=== PATIENT | male | born 1960 | race Caucasian/White ===

== ENCOUNTER 2022-08-01 12:18 | Emergency (ER) | payer OTHER ==
[~2022-08-01] VITALS: Ht 182.9 cm; Wt 61.2 kg
[2022-08-01 12:20] VITALS: BP_SYST 143
[2022-08-01 23:34] LABS: BASOPHILS # (AUTO) 0.1 K/uL (0.0-0.2); EOSINOPHILS # (AUTO) 0.1 K/uL (0.0-0.4); EOSINOPHILS % (AUTO) 0.8 % (0.0-4.0); HEMATOCRIT 33.3 % (36-54); HEMOGLOBIN 10.8 g/dL (14.0-18.0); LYMPHOCYTES # (AUTO) 1.6 K/uL (1.0-5.5); LYMPHOCYTES % (AUTO) 24.6 % (20.5-51.5); MEAN CORPUSCULAR HEMOGLOBIN 25 pg (27-31); MEAN CORPUSCULAR HGB CONC 33 % (32-36); MEAN CORPUSCULAR VOLUME 78 fL (79.0-98.0); MONOCYTES # (AUTO) 0.6 K/uL (0.0-1.0); MONOCYTES % (AUTO) 9.8 % (1.7-9.3); NEUTROPHILS # (AUTO) 4.2 K/uL (1.8-7.7); NEUTROPHILS % (AUTO) 63.8 % (40.0-70.0); PLATELET COUNT (AUTO) 362 K/uL (130-430); RED BLOOD CELL COUNT(AUTO) 4.29 MIL/uL (4.2-6.2); WHITE BLOOD COUNT (AUTO) 6.5 K/uL (4.8-10.8)
[2022-08-02 00:17] LABS: CALCIUM 9.6 mg/dL (8.4-11.0); CREATININE 1.29 mg/dL (0.55-1.30); TOTAL BILIRUBIN 0.2 mg/dL (0.0-1.0)
[2022-08-02 00:18] LABS: ALBUMIN 3.9 g/dL (3.4-4.8)
[2022-08-02] MEDS ORDERED: HYDR-3917 PO ×2 (02:42→03:26)
[2022-08-02] MEDS ORDERED: IBUP-1969 PO ×2 (02:42→03:26)
[2022-08-02] MEDS ORDERED: LIDO1ADH71 TD ×2 (02:42→03:26)
[2022-08-02] MEDS ORDERED: ONDA-8 TL ×2 (02:42→03:26)
[2022-08-02] MEDS ORDERED: MORPHINE 4 MG INJ. 4 MG/ML VIAL IVP ONE (03:00)
[2022-08-02] MEDS ORDERED: MORPHINE 4 MG INJ. 4 MG/ML VIAL ONE (03:01)
[2022-08-02 03:38] VITALS: BP_SYST 141
== END 2022-08-02 03:27 | disposition home or self-care (01) ==
LOC: SED 12:18
DX: S30.1XXA Contusion of abdominal wall, initial encounter (principal); Z79.899 Other long term (current) drug therapy; V49.59XA Passenger injured in collision with other motor vehicles in traffic accident, initial encounter; Y93.89 Activity, other specified; Y92.89 Other specified places as the place of occurrence of the external cause; Y99.8 Other external cause status
CPT/HCPCS: 99285; 70450; 80053; 85025; 36415; 72125; 76376 ×2; 71260; 96374; 74177; J2270; Q9967